=== PATIENT | male | born 1990 | race Two or more races ===

== ENCOUNTER 2017-09-30 12:28 | Emergency (ER) | payer OTHER ==
[2017-09-30 12:36] VITALS: BP 141/78
--- NOTE | 2017-09-30 13:13 | EDPHY ---
H & P Smoking Status: Current every day smoker Time Seen by Provider: 09/30/17 13:07 HPI/ROS: CHIEF COMPLAINT: Left foot and ankle pain post rock climbing HISTORY OF PRESENT ILLNESS: 27-year-old male visiting from [place] arrives via private vehicle complaining of acute left foot and ankle pain after he was rock climbing, got his left foot ankle twisted in a crack. He did not fall from a height, did not impact his calcaneus, did not impact the ledge. No head injury. No knee pain although he does sustained abrasion to his left anterior knee with no underlying osseous discomfort. No fibular head injury. No pelvic pain or injury. PHYSICAL EXAM (Prior to examination, patient consented to physical exam, hands were washed and my usual and customary physical exam procedures followed) 1) GENERAL: Well-developed, well-nourished, alert and oriented. Appears to be in no acute distress. 2) HEAD: Normocephalic 3) HEENT: Pupils equal, round, reactive to light bilaterally. 4) LUNGS: Breathing comfortably. 5) MUSCULOSKELETAL: Abrasion to the left anterior knee with no underlying osseous discomfort full pain-free range of motion no patellar discomfort. Tender to palpation left lateral ankle and left dorsal midfoot. Soft tissue swelling noted at same locations. Soft compartments of the lower extremity. proximal tibia and fibula nontender .5th MT nontender negative Rios test, compartments soft 6) SKIN: Intact with the exception of small abrasion measuring 1 cm to the left prepatellar region. 7) VASCULAR: DP,PT pulses and cap refill present and brisk DIFFERENTIAL DIAGNOSIS: in no particular order including but not limited to fracture, sprain, compartment syndrome Procedure: Crutches indications for crutch use discussed with patient. Patient fitted for crutches by ER staff. Observed ambulating with crutches. I think the patient has the capacity to safely use crutches. Usual and customary crutch walking precautions provided Procedure: Splint A pat boot splint was applied by ER psychology technician. After application of the splint I returned and re-examined the patient. The splint was adequately immobilizing the joint and distal to the splint the patient's circulation and sensation were intact. Patient shows no signs of compartment syndrome. Was given orthopedic precautions. (Marguerite Valles) Constitutional: Initial Vital Signs Temperature (C) 36.9 C 09/30/17 12:31 Heart Rate 79 09/30/17 12:31 Respiratory Rate 16 09/30/17 12:31 Blood Pressure 141/78 H 09/30/17 12:31 O2 Sat (%) 97 09/30/17 12:31 O2 Delivery Mode Room Air Allergies/Adverse Reactions: No Known Allergies Allergy (Unverified 09/30/17 12:36) Home Medications: Medication Instructions Recorded Ibuprofen [Motrin (*)] 600 mg PO Q6 #15 tab 09/30/17 Telmisartan 09/30/17 oxyCODONE/APAP 5/325 [Percocet 1 tab PO Q6 #7 tab 09/30/17 5/325] MDM/Departure - MDM Imaging Results: Images reviewed myself (Marguerite Valles) ED Course/Re-evaluation: The patient was evaluated and managed by the Physician [employer] Hooker. I discussed the patient's presentation and course with the midlevel provider with them and agree with the evaluation. My co-signature indicates that I have reviewed this chart and I agree with the findings and plan of care as documented. I am the secondary supervising physician. (Kim Smalls) - Depart Disposition: Home, Routine, Self-Care Clinical Impression: Ankle sprain Qualifiers: Encounter type: initial encounter Involved ligament of ankle: unspecified ligament Laterality: left Qualified Code(s): S93.402A - Sprain of unspecified ligament of left ankle, initial encounter Fracture of 5th metatarsal Qualifiers: Encounter type: initial encounter Fracture type: closed Fracture alignment: nondisplaced Laterality: left Qualified Code(s): S92.355A - Nondisplaced fracture of fifth metatarsal bone, left foot, initial encounter for closed fracture Condition: Good Instructions: Ankle Sprain (ED), Foot Fracture in Adults (ED) Additional Instructions: Return to the ER immediately if you experience discoloration, have worsening pain, numbness, tingling, or any other symptoms that concern you. If you received x-rays in the emergency department today, be advised, that ligamentous , tendon, muscular, and other non-bony injury cannot be fully ruled out. Try to keep your affected extremity elevated above the level of your chest, and keep cold packs on the affected area, for the next 48 hours. Prescriptions: Ibuprofen [Motrin (*)] 600 mg PO Q6 #15 tab oxyCODONE/APAP 5/325 [Percocet 5/325] 1 tab PO Q6 #7 tab Referrals: Be Qureshi MD [Medical Doctor] - 2-3 days, call for appt.
== END 2017-09-30 14:06 | disposition home or self-care (01) ==
DX: S92.355A Nondisplaced fracture of fifth metatarsal bone, left foot, initial encounter for closed fracture (principal); S93.402A Sprain of unspecified ligament of left ankle, initial encounter; F17.200 Nicotine dependence, unspecified, uncomplicated; X50.9XXA Other and unspecified overexertion or strenuous movements or postures, initial encounter; Y99.8 Other external cause status; Y93.31 Activity, mountain climbing, rock climbing and wall climbing
CPT/HCPCS: L4386